=== PATIENT | female | born 1950 | race Caucasian/White ===

== ENCOUNTER 2021-09-01 11:29 | Outpatient (REF) | payer MEDICARE, OTHER, SELFPAY ==
--- NOTE | ~2021-09-01 | XR_ITS ---
EXAMINATION: XR LUMBOSACRAL SPINE WITH OBLIQUES CLINICAL INFORMATION: Lower back pain due to displacement of intervertebral disc COMPARISON: None TECHNIQUE: AP, both oblique, and lateral views of the lumbar spine. Lateral view of the lumbosacral junction. FINDINGS: Mild scoliotic curvature. Osteopenia. There is a compression deformity of the L2 vertebral body with approximately 40% loss of anterior vertebral body height. This may be chronic. Multilevel endplate osteophytes. Disc spaces are maintained. Facet arthropathy throughout. The sacroiliac joints are symmetric. The visualized sacrum is intact. Nonobstructive bowel gas pattern. XR/XR lumbar spine 4V min IMPRESSION: Moderate degenerative changes throughout the lumbar spine. Compression deformity of the L2 vertebral body noted.
== END 2021-09-01 11:30 | disposition home or self-care (01) ==
LOC: HO.XRAY 11:29
PROVIDERS: PCP Internal Medicine; Visit Provider Psychiatry & Neurology Neurology
DX: M51.26 Other intervertebral disc displacement, lumbar region (principal)
CPT/HCPCS: 72110

== ENCOUNTER 2025-06-25 19:54 | Emergency (ER) | payer MEDICARE, OTHER, SELFPAY ==
--- NOTE | 2025-06-25 | ECG_ITS ---
Test Reason : fall Blood Pressure : */* mmHG Vent. Rate : 92 BPM Atrial Rate : 92 BPM P-R Int : 120 ms QRS Dur : 76 ms QT Int : 354 ms P-R-T Axes : 38 1 35 degrees QTcB Int : 437 ms Normal sinus rhythm with sinus arrhythmia Normal ECG No previous ECGs available Referred By: Generic ED Physician Electronically Signed By: COLEMAN PALMER MD
--- NOTE | ~2025-06-25 | CT_ITS ---
CLINICAL HISTORY: fall, face forward, ROMERO CT head without contrast Comparison: None provided. Findings: No intracranial mass, midline shift, hydrocephalus, or acute hemorrhage. There is generalized cerebral and cerebellar volume loss. Minimal mucosal thickening identified within the ethmoid air cells and right maxillary sinus. The bilateral mastoid air cells appear clear. No acute skull fracture. Ubzy-ac-iebneirw left periorbital hematoma. Impression: 1. No acute intracranial abnormality. No acute intracranial hemorrhage. 2. Ptpd-vh-erwvtndo left periorbital hematoma. No acute calvarial fracture. This document has been electronically signed by: Pete Pat MD on 06/25/2025 23:33:09
--- NOTE | ~2025-06-25 | CT_ITS ---
CLINICAL HISTORY: fall, mild posterior neck pain CT cervical spine without contrast Comparison: None provided. Findings: The visualized portions of the bilateral lung apices appear clear. There is minimal grade 1 anterolisthesis of C4 on C5. Moderate to severe degenerative endplate changes are present at the cervical spine, greatest inferiorly. Multilevel bilateral degenerative facet arthropathy present at the cervical spine. Degenerative pannus formation also present at the C1-C2 articulation. No acute fractures or dislocations. No significant degenerative endplate changes at the cervical spine. Impression: 1. No acute fracture or dislocation injury identified at the cervical spine. This document has been electronically signed by: Pete Pat MD on 06/25/2025 23:45:56
--- NOTE | ~2025-06-25 | CT_ITS ---
CLINICAL HISTORY: fell on face from standing CT maxillofacial without contrast Comparison: None provided. Findings: No acute fractures. Temporomandibular joints intact. The bilateral globes appear intact. Nrry-mn-igdembkt left periorbital hematoma. No retrobulbar hematoma. Minimal mucosal thickening present within the ethmoid air cells and right maxillary sinus. The remainder of the paranasal sinuses appear clear. The bilateral mastoid air cells appear clear. There is multifocal dental disease. Impression: 1. No acute fracture or dislocation injury of the facial bones identified. 2. Usmi-xt-nhfmzsex left periorbital hematoma. The bilateral globes appear intact. No retrobulbar edema or hematoma demonstrated. This document has been electronically signed by: Pete Pat MD on 06/25/2025 23:44:29
[2025-06-25 20:02] VITALS: BP 114/72; BP 148/86; PULSE 112; PULSE 95; RESP 17; TEMP 37.6; O2SAT 97; O2SAT 99; BMI 24.9
--- OUTSIDE RECORDS SUMMARY | 2025-06-25 20:18 | XMS_ITS | Patient Health Record ---
Author Organization [facility] Priya downey Billing Info Address [address] [place] [address] Support Name Relationship Address Phone Papa Polancour Emergency Contact [address] [place] [address] Mabel Polanco Guarantor Unknown [phone] Allergies Allergen (clinical drug ingredient) Drug/Non Drug Allergy documented on EMR Reaction Allergy Type Onset Date Status keflex (uncoded) Unknown Allergy Act alexandrea Reason For Referral No Information Medications Medication SIG (Take, Route, Frequency, Duration) Notes Start Date End Date Status Trulicity 0.75 MG/0.5ML as directed Subcutaneous Active Calcium Acetate 667 MG 2 tablets with me als Orally Three times a day for 30 day(s) Active GlipiZIDE 10 MG 1 tablet 30 minutes before breakfast Orally Once a day for 30 day(s) Active Metformin HCl 500 MG 1 tablet with a pedrito l Orally Once a day for 30 day(s) Active Insulin Aspart 100 UNIT/ML as directed Subcutaneous Act alexandrea Sertraline HCl 100 MG 1 tablet Orally On ce a day for 30 day(s) Active Hydrocodone-Acetaminoph en 7.5-325 MG 1 tablet as needed Orally every 4 hrs Not-Taking Social History Tobacco Use: Social History Observation Description Date Details (start date - stop date) Never Smoker NA - NA Tobacco Status: Question Answer Notes Patient is a never smoker Problems Problem Type SNOMED Code ICD Code Onset Dates Problem Status W/U Status Risk Notes Problem 90525353 Other closed intra-articular fracture of distal end of right radius, initial encounter (S52.571A) Active confirmed Problem 77091441 Other closed intra-articular fracture of distal end of right radius with routine healing, subsequent encounter (S52.571D) Active confirmed Problem 411930343 Status post surgery (Z98.890) Active confirmed Plan Of Treatment No Information Insurance Providers Payer Name Payer Address Payer Phone Subscriber Number Group Number Insured Name Patient Relationship to Insured Coverage Start Date Coverage End Date [place] B [id number] [place], [place] [id number] Collin Mabel Self - patient is the insured [facility] PRIOR TO [id number] [address] [place], [place] [id number] Mabel Polanco Self - patient is the insured Medical (General) History Medical History History ICD Code Hypertension DM Osteopenia Peripheral neuropathy Right wrist fracture Surgical History Surgery Date(Month/Year) Bilateral toe surgery ORIF of right distal radius fx with a volar locking plate, Open tenotomy of brachioradalis tendon (Melvina) 12/30/21
--- OUTSIDE RECORDS SUMMARY | 2025-06-25 20:18 | XMS_ITS | Continuity of Care Document ---
Author Organization [facility] [address] [place] [address] Phone [phone] Care Team Providers Care Intelligent Systems Engineer Name Role Phone Lamont Colby M.D. Care Team Information R eceiver [phone] Angel Malcolm MD Care Team Information Receiv er [phone] Dejah Irizarry Care Team Information Rec eiver [phone] Problems Active Problems Provider Date Type 2 diabetes mellitus Quynh Julian M.D. Onset: 07/27/2022 Essential hypertension Alo Jenkins Onset: 07/27/2022 Dyslipidemia Quynh Julian M.D. Ons et: 07/27/2022 Diabetic peripheral neuropathy Quynh ulloa M.D. Onset: 07/27/2022 Closed fracture of right wrist Quynh ulloa M.D. Onset: 07/27/2022 Osteopenia Quynh Julian M.D. Ons et: 07/27/2022 Closed fracture of left wrist Quynh holliday M.D. Onset: 07/27/2022 Closed fracture of right ankle Quynh ulloa M.D. Onset: 07/27/2022 Closed fracture of right shoulder Quynh Simpson M.D. Onset: 07/27/2022 Anxiety state Quynh Julian M.D. Ons et: 07/27/2022 Social History Type Date Description Comments Sex Female Sex Unknown Lives With Spouse Occupation Nurse Work Status Retired ETOH Use Denies alcohol use Tobacco Use Start: Unknown Patient has never smoked Allergies and adverse reactions Active Allergies Criticality Reaction Severity Comments Date Keflex Unable to assess criticality Hives 07/27/2022 Medications Active Medications SIG Qnty Indications Order ing Provider Date Rosuvastatin Oiwfbda2mc Tablets Take 1 tablet daily Lamont Colby M.D. 0 Wybjnmgkx80pe Tablets take 1 tablet ever y morning 90tabs Quynh Julian M.D. 0 Metformin [id number] Tablets take 1 tablet by mouth twice daily 180tabs Quynh Julian M.D. 0 BD Pen Needle/Short/Ultra-Fi ne/31G X 8mm31G X 8 mm Misc 1 pen needle to insulin pen three times a day dx: e11.42 300units E11.42 Quynh Julian M.D. 0 Basaglar Pyjpkkz269Lnmy/ML Solution Pen-Inject inject 10 units subcutaneously daily dx: e11.42 15ml E11.42 Quynh Julian M.D. 0 Sertraline IMZ13cl Tablets Take 1 tablet daily Lamont Colby M.D. 0 Losartan Rzwvlezzh50ao Tablets Take 1 tablet daily Lamont Bueno M.D. 0 Multivitamin Womens 50+ AdvancedTablets 1 by mouth every day Jordan Julian M.D. 0 Calcium 600 + [id number] Tablets 1 by mouth every day Quynh Julian M.D. 0 Preservision Areds 2Areds 2 Capsules 1 by mouth once a day Quynh Julian M.D. 0 Vitamin B-350498cii Tablets Sub 1 qd Quynh Julian M.D. 0 Fgfgao637un Capsules 1 by mouth every da y as needed Unknown 0 Trazodone XAC22ny Tablets take 1/2 tablet by mouth daily at bedtime as needed Unknown 0 Vital Signs Date Vital Result Comment 01/29/2025 3:46pm BP Systolic 110 mmHg BP Diastolic 68 mmHg Heart Rate 73 /min Height 63 inches 5'3 Weight 123.12 lb BMI (Body Mass Index) 21.8 kg/m2 Results Test Acquired Date Facility Test Result H/L Range Note Glucose Fingerstick 01/29/2025 Inhouse Glucose Fingerstick 100 Hemoglobin A1c 01/29/2025 Inhouse Hemoglobin A1c 9.9% Comp. Metabolic Panel (14) 09/27/2024 [facility] Glucose 135 mg/dL High 70-99 BUN 9 mg/dL 8-27 Creatinine 0.53 mg/dL Low 0.57-1.0 0 eGFR 97 mL/min/1. 73 >59 BUN/Creatinine Ratio 17 12-28 Sodium 141 mmol/L 134-144 Potassium 4.3 mmol/L 3.5-5.2 Chloride 104 mmol/L 96-106 Carbon Dioxide, Total 20 mmol/L 20-29 Calcium 9.9 mg/dL 8.7-10.3 Protein, Total 6.1 g/dL 6.0-8.5 Albumin 4.2 g/dL 3.8-4.8 Globulin, Total 1.9 g/dL 1.5-4.5 Bilirubin, Total 0.3 mg/dL 0.0-1 .2 Alkaline Phosphatase 62 IU/L 44-121 Ast (Sgot) 19 IU/L 0-40 Alt (SGPT) 16 IU/L 0-32 Lipid Panel 09/27/2024 [facility] Cholesterol, Total 120 mg/dL 100-199 Triglycerides 83 mg/dL 0-149 HDL Cholesterol 56 mg/dL >39 VLDL Cholestero l Placido 16 mg/dL 5-40 LDL Chol Calc (Nih) 48 mg/dL 0-99 LDL Calc Comment: TNP Glucose Fingerstick 09/27/2024 Inhouse Glucose Fingerstick 156 Hemoglobin A1c 09/27/2024 Inhouse Hemoglobin A1c 8.1% Albumin/Creatinin e Ratio, Random Urine 05/23/2024 [facility] Creatinine, Urine 106.0 mg/dL Not Estab. 1, 2 Albumin, Urine 102.6 ug/mL Not Estab. 3 Alb/Creat Ratio 97 mg/gcreat High 0-29 4 Glucose Fingerstick 05/23/2024 Inhouse Glucose Fingerstick 213 Hemoglobin A1c 05/23/2024 Inhouse Hemoglobin A1c 8.2% Glucose Fingerstick 01/12/2024 Inhouse Glucose Fingerstick 105 Hemoglobin A1c 01/12/2024 Inhouse Hemoglobin A1c 8.3% Comprehensive Metabolic Panl 01/12/2024 [facility] Glucose 84 mg/dL (70-99) BUN 10 mg/dL (8-23) Creatinine 0.5 mg/dL (0.5-1.0 ) Sodium 144 mmol/L (133-145 ) Potassium 4.4 mmol/L (3.6-5.2 ) Chloride 102 mmol/L (98-107) Bicarbonate 29 mmol/L (22-29) Anion Gap 13 (4-17) Albumin 4.3 GM/DL (3.4-4.8 ) Calcium 10.6 mg/dL High (8.6-10. 5) Bilirubin,Total 0.4 mg/dL (0-1.2 ) Total Protein 6.4 GM/DL (6.2-8.2 ) Ag Ratio 2.0 Ast 16 U/L (0-32) Alk Phos 77 U/L (35-104) Alt 14 U/L (0-33) Estimated GFR Creatinine 99 ML/MIN/1. 73M2 5 Glucose Fingerstick 06/04/2023 Inhouse Glucose Fingerstick 196 Glucose Fingerstick 07/27/2022 Inhouse Glucose Fingerstick 99 Hemoglobin A1c 07/27/2022 Inhouse Hemoglobin A1c 7.0% 1 SRC: URINE 2 Source of Specimen: URINE 3 Source of Specimen: URINE 4 Source of Specimen: URINE Normal: 0 - 29 Moderately increased: 30 - 300 Severely increased: >300 5 Creatinine based est imated glomerular filtration (eGFR) in adults is calculated using the [employer] recommended 2020 CKD-EPI equation. Estimates GFR from serum creatinine, age and sex. Procedures Date Code Description Status 01/12/2024 52654 Collection Of Venous Blood B y Venipuncture Completed Medical Devices Description No Information Available Encounters Type Date Location Provider Dx Diagnosis Office Visit 01/29/2025 3:15p Main Office Quynh Julian M.D. E11.42 Type 2 diabetes mellitus with diabetic polyneuropathy I10 Essential (primary) hypertension E78.00 Pure hypercholestero lemia, unspecified E11.65 Type 2 diabetes andria itus with hyperglycemia F03.90 Unsp dementia, unsp severity, without beh/psych/mood/anx Z79.4 halfway (current) use of insulin Assessments Date Code Description Provider 01/29/2025 E11.42 Type 2 diabetes mellitus with diabetic polyneuropathy Quynh Julian M.D. 01/29/2025 I10 Essential (primary) hyperten gabriela Quynh Julian M.D. 01/29/2025 E78.00 Pure hypercholesterolemia, u nspecified Quynh Julian M.D. 01/29/2025 E11.65 Type 2 diabetes mellitus with hyperglycemia Quynh Julian M.D. 01/29/2025 F03.90 Unspecified james ntia, unspecified severity, without behavioral disturbance, psychotic disturbance, mood disturbance, and anxiety Quynh Julian M.D. 01/29/2025 Z79.4 terminal gauger (current) use of i nsulin Quynh Julian M.D. Plan of Treatment Future Appointment(s):* 09/28/2025 2:15 pm - Quynh Julian M.D. at Main Office 07/27/2022 - Quynh Julian M.D.* E11.42 Type 2 diabetes mellitus with diabetic polyneuropathy * I10 Essential (primary) hypertension * E78.00 Pure hypercholesterolemia, unspecified * F41.9 Anxiety disorder, unspecified Functional Status Description No Information Available Mental Status Description No Information Available Referrals Description No Information Available
--- OUTSIDE RECORDS SUMMARY | 2025-06-25 20:18 | XMS_ITS | Clinical Summary ---
Author Organization [facility] it[facility] Address [address] [place] [address] Care Team Providers Care Sales Promotion Director Name Role Phone Angel Malcolm MD Primary Care Provider Allergies Active Allergy Reactions Criticality Noted Date Comments Cephalexin Rash 02/18/2023 Medications calcium carbonate (CALCIUM 600 ORAL) Take by mouth daily. Active ibuprofen (ADVIL,MOTRIN) 600 mg tablet Take 1 Tablet by mouth every 6 hours as needed for Pain. 08/30/2023 Active multivitamin (MULTIPLE VITAMINS ORAL) Take 1 Tablet by mouth daily. Active vit C/E/Zn/coppr/coby tein/zeaxan (PRESERVISION AREDS-2 ORAL) Take by mouth. Active amitriptyline (ELAVIL) 25 mg tablet Take 1 Tablet by mouth at bedtime. 06/02/2023 Active aspirin 81 mg EC tablet Take 1 tablet (81 mg total) by mouth 1 (one) time each day. 02/18/2023 Active docusate sodium (COLACE) 100 mg capsule Take 1 capsule (100 mg total) by mouth 2 (two) times a day. 08/18/2023 Active dulaglutide (Trulicity) 0.75 mg/0.5 mL pen injector injection Inject into the skin once a week. Active gabapentin (NEURONTIN) 100 mg capsule 1 cap in AM and 2 cap at night 08/17/2023 Active glyBURIDE (DIABETA) 5 mg tablet Take 1 Tablet by mouth daily (with breakfast). Active insulin glargine (LANTUS SoloStar) 100 unit/mL (3 mL) injection pen Inject 15 Units into the skin at bedtime. 05/27/2023 Active losartan (COZAAR) 25 mg tablet Take 1 tablet (25 mg total) by mouth 1 (one) time each day. 02/18/2023 Active metFORMIN (GLUCOPHAGE) 1,000 mg tablet Take 1 Tablet by mouth 2 times daily (with meals). Active rosuvastatin (CRESTOR) 10 mg tablet Take 1 tablet (10 mg total) by mouth 1 (one) time each day. 02/18/2023 Active sertraline (ZOLOFT) 50 mg tablet Take 1 tablet (50 mg total) by mouth 1 (one) time each day. Active Active Problems Problem Noted Date Diagnosed Date Ataxia 02/18/2023 Insomnia 02/18/2023 Mixed hyperlipidemia 02/18/2023 Osteopenia 02/18/2023 Primary hypertension 02/18/2023 Immunizations Name Administration Dates Next Due Influenza Quadravalent, MDCK , 0.5ml, preservative free (Flucelvax) 6mo and older 09/02/2023 Surgical History Surgery Date Site/Laterality Comments WRIST SURGERY PROCEDURE: HISTORICAL WRIST SURGERY Medical History Medical History Date Comments DM (diabetes mellitus) ([facility] V24, [facility] [place] V28) DX:DM (diabetes mellitus) ([facility]) Essential (primary) hypertension DX:Essential (primary) hypertension Mixed hyperlipidemia DX:Mixed hy perlipidemia Peripheral neuropathy DX:Periphe ral neuropathy Insomnia DX:Insomnia Ataxia DX:Ataxia Family History Medical History Relation Name Comments Diabetes Mother Coronary artery disease Neg Hx Other cancer Neg Hx Relation Name Status Comments Mother Social History Tobacco Use Types Packs/Day Years Used Date Smoking Tobacco: Never Smokeless Tobacco: Never Alcohol Use Standard Drinks/Week Comments Never 0 (1 standard drink = 0.6 oz pur e alcohol) Comments Unknown Sex and Gender Information Value Date Recorded Sex Assigned at Not on file Legal Sex Female 3:26 PM EST Gender Identity Not on file Sexual Orientation Not on file Obstetrics History Last Filed Vital Signs Vital Sign Reading Time Taken Comments Blood Pressure 112/68 10/14/2023 9:11 AM EST Pulse 84 10/14/2023 9:11 AM EST Temperature - - Respiratory Rate - - Oxygen Saturation - - Inhaled Oxygen Concentration - - Weight 70.3 kg (155 lb) 10/14/2023 9:11 AM EST Height 162.6 cm (5' 4 ) 10/06/2023 10:05 AM EST Body Mass Index 26.61 10/06/2023 10:05 AM EST Plan of Treatment Health Maintenance Due Date Last Done Comments Breast Cancer Screening 1950 Diabetes: Annual Retina Eye Exam 1960 DTaP,Tdap,and Td Vaccines (1 - Tdap) 1969 Pneumococcal Vaccine: 50+ Years (1 of 1 - PCV) 2000 Zoster Vaccines (1 of 2) 2000 RSV Immunization Adult Patients (1 - Risk 60-74 years 1-dose series) 2010 Colorectal Cancer Screening: Colonoscopy 10/07/2022 Falls Risk Assessment 10/07/2022 Hepatitis C Screening 10/07/2022 Osteoporosis Screening (Bone Density Screening) 10/07/2022 Social Influencers of Health Screening 10/07/2022 COVID-19 Vaccine ( - season) 2024 Diabetes: Annual GFR (Glomerular Filtration Rate) 08/25/2024 08/25/2023 Hypertension/CHF/CAD Annual BMP Blood Test 08/25/2024 08/25/2023 Depression Screening 11/08/2024 Diabetes: Annual Urine Albumin-Creatinine Ratio (uACR) 03/23/2025 08/25/2023 Diabetes: Blood Sugar Control Test (HGBA1C) 03/23/2025 08/25/2023 Influenza Vaccine (#1) 2025 , 09/06/2022, 08/28/2021, Additional history exists Diabetes: Annual Foot Exam 09/04/2025 09/04/2024 Cholesterol Screening (Lipid Panel) 08/25/2028 08/25/2023 HIB Vaccines Aged Out No longer eligi ble based on patient's age to complete this topic HPV Vaccines Aged Out No longer eligi ble based on patient's age to complete this topic Hepatitis A Vaccines Aged Out No long er eligible based on patient's age to complete this topic Hepatitis B Vaccines Aged Out No long er eligible based on patient's age to complete this topic IPV Vaccines Aged Out No longer eligi ble based on patient's age to complete this topic MMR Vaccines Aged Out No longer eligi ble based on patient's age to complete this topic Meningococcal ACWY Vaccine Aged Out N o longer eligible based on patient's age to complete this topic Meningococcal B Vaccine Aged Out No l onger eligible based on patient's age to complete this topic RSV Immunization Patients Under 20 months Aged Out No longer eligible based on patient's age to complete this topic Varicella Vaccines Aged Out No longer eligible based on patient's age to complete this topic Procedures Procedure Name Priority Date/Time Associated Diagnosis Comments DIABETES FOOT EXAM Routine 09/04/2024 URINE ALBUMIN CREATININE RATIO Routine 08/25/2023 ANNUAL BMP BLOOD TEST Routine 08/25/2023 HEMOGLOBIN A1C Routine 08/25/2023 LIPID PANEL Routine 08/25/2023 from Last 3 Months or Most Recently Relevant to Health Maintenance Results * Diabetes Foot Exam (09/04/2024) Pathologist [facility] Diabetes: Annual Foot Exam abstracted Result [facility] Provider HEALTH MAINTENANCE Final Result * Urine Albumin Creatinine Ratio (08/25/2023) [facility] Urine Albumin Creatinine Ratio abstracted Result [facility] Provider HEALTH MAINTENANCE Final Result * Annual BMP Blood Test (08/25/2023) [facility] Annual BMP Blood Test abstracted Result [facility] Provider HEALTH MAINTENANCE Final Result * (ABNORMAL) Hemoglobin A1c (08/25/2023) [facility] Hemoglobin A1C 7.9(A) <=6.5 % Blood Venous blood specimen / Unknown Result [facility] Provider LAB BLOOD ORDERABLES Rocio l Result * Lipid panel (08/25/2023) LDL/HDL Ratio 3 0 - 4 Triglycerides 116 0 - 150 mg/dL Cholesterol 156 0 - 200 mg/dL HDL 60 >=40 mg/dL LDL Cholesterol 73 0 - 100 mg/dL Blood Venous blood specimen / Unknown us Historical Provider LAB BLOOD ORDERABLES Rocio l Result from Last 3 Months or Most Recently Relevant to Health Maintenance Care Teams Sales Promotion Director Relationship Specialty Start Date End Date Angel Malcolm MD [address] [place] [id number] PCP - General 10/22/22
[2025-06-25 21:15] LABS: MANUAL DIFF FLAG NO
[2025-06-25 21:20] LABS: Hematocrit 37.0 % (37.0-47.0); Hemoglobin 12.6 g/dl (12.0-16.0); Imm Gran Abs Auto 0.05 X10*3/uL (0.00-0.03); Imm Gran Pct Auto 0.5 % (0.0-0.4); Lymphocytes Absolute Auto 0.6 X10*3/uL (1.2-4.9); Mean Corpuscular HGB Conc 34.1 g/dl (31.0-35.0); Mean Corpuscular Hemoglobin 30.7 pg (27.0-33.0); Mean Corpuscular Volume 90.2 fL (80.0-98.0); NRBC Abs Auto 0.000 X10*3/uL (0.0-0.012); NRBC Pct Auto 0.0 /100WBC (0.0-0.2); Platelet Count 242 X10*3/uL (160-400); Red Blood Count 4.10 X10*6/uL (4.20-5.50); White Blood Count 9.2 X10*3/uL (4.8-10.8)
[2025-06-25 21:31] LABS: Anion Gap 15 (12-20); Blood Urea Nitrogen 13 mg/dL (9-16); Calcium 9.0 mg/dL (8.4-10.2); Carbon Dioxide 25 mmol/L (22-29); Chloride 100 mmol/L (96-108); Creatinine Clr Calc Pharmacy 73.1; Estimated Glomerular Filt Rate > 60; Potassium 4.2 mmol/L (3.3-5.1); Sodium 136 mmol/L (135-145)
--- NOTE | 2025-06-25 22:03 | ED_ITS ---
HPI - Fall General Chief Complaint: Fall Stated Complaint: FALL, EYEBROW LAC Time Seen by Provider: 06/25/25 20:57 Source: patient, family and EMS Mode of arrival: EMS Limitations: other (Dementia) History of Present Illness ED Provider: Dr. Shaina Sun HPI Narrative: Patient comes to the emergency room via ambulance. Today, patient had a fall and is complaining of a laceration to the left side of the eyebrow. According to the family, patient lives with her who is otherwise healthy. However today he has COVID and is not here. The family reports that the patient has been falling almost every day for about a month, has sustained well over 20 falls in 1 month. Patient has a share of dementia and is a poor historian. Patient is known to the family to lie about her pain level. Patient will state that she has no pain even though she does Related Data Home Medications ?Medication ?Instructions ?Recorded ?Confirmed aspirin 81 mg tablet 81 mg PO DAILY 06/26/2506/08 glipizide 10 mg tablet 10 mg PO DAILY 06/26/2506/08 insulin glargine 100 unit/mL (3 10 unit subcut DAILY 0 06/26/25 06/26/25 mL) subcutaneous pen (Basaglar KwikPen U-100 Insulin) losartan 25 mg tablet 25 mg PO DAILY 06/26/2506/08 metformin 1,000 mg tablet 1,000 mg PO BID 06/26/25 rosuvastatin 10 mg tablet 10 mg PO DAILY 06/26/2506/08 sertraline 50 mg tablet 50 mg PO DAILY 06/26/2506/08 trazodone 50 mg tablet 50 mg PO BEDTIME 06/26/25 Allergies Allergy/AdvReac Type Severity Reaction Status Date / Time cephalexin (From Keflex) Allergy Unknown Unknown Verified 06/28/25 10:05 Review of Systems 2 Review of Systems: Yes Other (Patient denies any symptoms, however, patient has history of dementia, poor) [facility] Past Medical History Medical History (Updated 07/01/25 @ 00:02 by Background Dakeri) Dementia Social History Social History Advance Directives Date on File: 06/26/25 Physical Exam 2 Exam: Exam: Appearance: Alert. Oriented X3. No acute distress. Eyes: Pupils equal, round and reactive to light. ENT: Pharynx normal. Neck: Normal inspection. Neck supple. No lymph nodes noted. No crepitus CVS: Normal heart rate and rhythm. Pulses normal. Normal S1 and S2 Respiratory: No respiratory distress. Breath sounds normal. No Wheezing. No rales Abdomen: Soft and nontender. No rigidity. No distention. Skin: Skin warm and dry. Normal skin color. Normal skin turgor. Multiple contusions in old upper and lower extremities from multiple falls, there is a 2 cm laceration on the lateral aspect of the left eyebrow Extremities: No lower extremity edema. No Lacerations. No Rash Neuro: Oriented X 3. No motor deficit. No sensory deficit. Moving all extremities. No slurred speech. CN 2 through 12 grossly intact Psych: calm, cooperative, normal affect Vital Signs: Vital Signs: Last Vital Signs Temp 98.2 F 07/01/25 11:26 Pulse 91 07/01/25 11:26 Resp 18 07/01/25 11:26 BP 110/67 07/01/25 11:26 Pulse Ox 96 07/01/25 11:26 O2 Del Method Room Air 07/01/25 11:26 BMI result Body Mass Index 24.9 Course Course Course Narrative: Patient denies any pain, patient's vitals stable. All of patient's labs pending CT scan pending Patient will need stitches Reevaluation(s) Reevaluation #1: Time: 12:00PM Date: 06/26/25 Provider: CASSIUS Dowling Patient in physician observation for case management needs. No acute events reported overnight.? No current issues or complaints. VS stable. Patient is pending placement at facility/pending PT/CM eval. Will continue to monitor. Time: 17:43 Date: 06/26/25 Provider: CASSIUS Dowling Patient in physician observation for case management needs. Family at bedside, concerned about her lethargy. They state that she is starting to slowly wake up. I explained to family that she did receive a lot of medications that can make her very drowsy which is likely the cause of her current symptoms right now. Patient is arousable to verbal stimulation. She is moving all extremities. Patient appears to be very dry, given this, will medicate with 1 L of IV fluids. Will remove IV after receiving IV fluids to prevent from injury if she gets agitated tonight. Reevaluation #2: Patient is becoming agitated, trying to dislodge her pure wick catheter, she was medicated yesterday with both olanzapine and Ativan, we will attempt to give 2 mg of oral Ativan which is what she had yesterday. Time: 00:24 Reevaluation #3: speaking with Alysha Mitchell NP, she is here on behalf of the psychiatry service....... She is making modifications to the patient's medications in regard to her agitation and sleep disturbance. The patient's med rec has been signed today, I have also added POCs, she is diabetic....... At the time of discharge, the psychiatry service will assess the patient again and modify her medications, so that the medications for sleep and agitation are scheduled versus p.r.n.. Time: 21:11 Additional Reevaluation(s): 06/28/2025 Physician observation: Patient is not in in any distress. Negative for any overnight events. Patient is comfortable in bed. Waiting for facility placement. Patient at [facility]. 1046 pm patient remains in physician labs, her blood sugars have been poorly controlled, she ranges from 230-330. She does have COVID, this is the likely reason why. Her med rec was signed yesterday, she has been getting her anti glycemic agents. To err on the side of caution we will repeat a BNP to make sure she is not developing acidosis. Time: 10:19 Date: 06/29/25 Provider: Yolanda Oreilly PA-C Patient in physician observation for case management needs. No acute events reported overnight.? No current issues or complaints. VS stable. Patient is pending placement at facility with [facility] for [facility], she is able to make her needs known. Fluctuating dementia but is orientated to her self which is baseline. Geriatric psycho consult pending for medication. Will continue to monitor. McNabbPhysician observation continued. Uneventful night. Vital signs stable. No complaints from nursing overnight. Med reconciliation reviewed and done. Pending disposition. Will continue to monitor. 722 pm a code status was not yet established for the patient, I just got off the phone with the patient's daughter, Rosie Harpreet, she is to be a full code until the family can have discussion about modifying her code status. 0846 at this time, observation ended. Patient will be [facility]. Patient agreeable to this plan. Medications Administered Discontinued Medications Generic Name Dose Route Start Last Admin Trade Name Freq PRN Reason Stop Dose Admin Acetaminophen 650 mg 06/27/25 20:59 06/29/25 20:15 Acetaminophen 325 Mg Tablet PO 650 mg Q6H PRN Administration Pain/fever Aspirin 81 mg 06/28/25 09:00 07/01/25 09:52 Aspirin 81 Mg Tab.Chew PO 81 mg DAILY DELMY Administration Atorvastatin Calcium 40 mg 06/28/25 09:00 07/01/25 09:52 Atorvastatin Calcium 40 Mg Tablet PO 40 mg DAILY DELMY Administration Diphenhydramine HCl 50 mg 06/26/25 01:19 06/26/25 01:32 Diphenhydramine Hcl 25 Mg Capsule PO 06/26/25 01:20 50 mg ONCE ONE Administration Glipizide 10 mg 06/28/25 09:00 07/01/25 09:52 Glipizide 10 Mg Tablet PO 10 mg DAILY DELMY Administration Sodium Chloride 1,000 mls @ 999 mls/hr 06/26/25 17:45 06/26/25 22:27 Ns IV 06/26/25 18:45 Infused .Q1H1M ONE Infusion Insulin Glargine 10 unit 06/28/25 09:00 07/01/25 09:52 Insulin Glargine,Hum.Rec.Anlog 100 Unit/Ml 10 Ml Vial SUBCUT 10 unit DAILY DELMY Administration Lidocaine HCl 10 ml 06/25/25 21:56 06/25/25 22:10 Lidocaine Hcl 1 % 20 Ml Vial INFILTRATI 06/25/25 21:57 10 ml ONCE ONE Administration Lorazepam 2 mg 06/25/25 23:26 06/25/25 23:39 Lorazepam 1 Mg Tablet PO 06/25/25 23:27 2 mg ONCE ONE Administration Lorazepam 2 mg 06/26/25 01:19 06/26/25 01:32 Lorazepam 1 Mg Tablet PO 06/26/25 01:20 2 mg ONCE ONE Administration Lorazepam 2 mg 06/27/25 00:24 06/27/25 00:28 Lorazepam 1 Mg Tablet PO 08/20/25 00:25 2 mg ONCE ONE Administration Lorazepam 0.5 mg 06/27/25 20:57 06/28/25 20:50 Lorazepam 0.5 Mg Tablet PO 0.5 mg Q6H PRN Administration severe anxiety Losartan Potassium 25 mg 06/28/25 09:00 07/01/25 09:52 Losartan Potassium 25 Mg Tablet PO 25 mg DAILY DELMY Administration Protocol Melatonin 6 mg 06/27/25 21:00 06/30/25 19:29 Melatonin 3 Mg Tablet PO Not Given BEDTIME DELMY Metformin HCl 1,000 mg 06/27/25 21:15 07/01/25 09:52 Metformin Hcl 1,000 Mg Tablet PO 1,000 mg BID DELMY Administration Olanzapine 10 mg 06/25/25 23:26 06/25/25 23:39 Olanzapine 10 Mg Tablet PO 06/25/25 23:27 10 mg ONCE ONE Administration Olanzapine 10 mg 06/26/25 01:19 06/26/25 01:32 Olanzapine 10 Mg Tablet PO 06/26/25 01:20 10 mg ONCE ONE Administration Olanzapine 2.5 mg 06/27/25 21:00 07/01/25 09:51 Olanzapine 2.5 Mg Tablet PO 2.5 mg BID DELMY Administration Olanzapine 5 mg 06/27/25 20:57 06/28/25 22:34 Olanzapine 5 Mg Tablet PO 5 mg BID PRN Administration agitation Sertraline HCl 50 mg 06/28/25 09:00 07/01/25 09:51 Sertraline Hcl 50 Mg Tablet PO 50 mg DAILY DELMY Administration Trazodone HCl 50 mg 06/27/25 20:57 06/28/25 22:34 Trazodone Hcl 50 Mg Tablet PO 50 mg BEDTIME PRN Administration Insomnia Trazodone HCl 50 mg 06/27/25 21:15 06/30/25 19:29 Trazodone Hcl 50 Mg Tablet PO 50 mg BEDTIME DELMY Administration Procedures Laceration Laceration 1: Site: face Size (cm): 2 Description: linear Depth: simple, single layer Local Anesthetic: lidocaine 1% Amount of anesthesia used (mL): 5 Pre-repair: wound explored Skin layer closed with: nylon Size (cm): 5-0 Number of sutures: 4 Technique: simple, interrupted Medical Decision Making Medical Decision Making MDM Narrative: My interpretation of labs: No significant abnormality in patient's hematology chemistry, urinalysis negative for UTI Head CT, face CT, cervical spine CT did not show any acute abnormality. Patient's laceration needed four stitches As mentioned above, patient has had over 20 falls per family in a month. No obvious medical reason. PT case management consult pending. Family Agrees with plan. Earlier today, patient was given p.o. Zyprexa, patient is still very agitated. Now given Benadryl p.o., an extra dose of olanzapine 10 mg and 2 mg of Ativan Also, patient tested positive for COVID. Patient is otherwise asymptomatic, no chest pain or shortness of breath. Patient's weakness started 1 month before she contracted COVID. The reason we tested the patient for COVID is because her has COVID at home right now. Physician observation started at 23:00 Differential Diagnosis Differential Diagnoses: The differential diagnosis associated with the presentation includes (Deconditioning, UTI, brain mass, dementia) Admission/Observation Consideration of admission/observation: Escalation of care including admission/observation considered (Patient will likely need physical therapy/case management and possibly placement.) Lab Data MDM Lab Attestation statement: I reviewed the patient's lab results. 06/25/25 21:09 06/29/25 14:16 Labs: Lab Results 06/25/25 06/25/25 06/25/25 Range/Units 21:09 22:12 22:23 WBC 9.2 (4.8-10.8) X10*3/uL RBC 4.10 L (4.20-5.50) X10*6/uL Hgb 12.6 (12.0-16.0) g/dl Hct 37.0 (37.0-47.0) % MCV 90.2 (80.0-98.0) fL MCH 30.7 (27.0-33.0) pg MCHC 34.1 (31.0-35.0) g/dl RDW 13.3 (11.0-16.0) % Plt Count 242 (160-400) X10*3/uL MPV 9.5 (9.4-12.3) fL Immature Gran % (Auto) 0.5 H (0.0-0.4) % Neut % (Auto) 83.4 H (45-73) % Lymph % (Auto) 6.8 L (20-40) % [place] % (Auto) 8.1 (2-11) % Eos % (Auto) 0.7 (0-4) % Baso % (Auto) 0.5 (0-2) % Lymph # (Auto) 0.6 L (1.2-4.9) X10*3/uL [place] # (Auto) 0.8 (0.1-1.2) X10*3/uL Eos # (Auto) 0.1 (0.0-0.4) X10*3/uL Baso # (Auto) 0.1 (0.0-0.2) X10*3/uL Abs Immat Gran (auto) 0.05 H (0.00-0.03) X10*3/uL Absolute Neuts (auto) 7.7 (2.0-8.3) x10*3/uL Absolute Nucleated RBC 0.000 (0.0-0.012) X10*3/uL Nucleated RBC % (auto) 0.0 (0.0-0.2) /100WBC Sodium 136 (135-145) mmol/L Potassium 4.2 (3.3-5.1) mmol/L Chloride 100 (96-108) mmol/L Carbon Dioxide 25 (22-29) mmol/L Anion Gap 15 (12-20) BUN 13 (9-16) mg/dL Creatinine 0.63 (0.5-1.4) mg/dL Estim Creat Clear Calc 73.1 Estimated GFR > 60 POC Glucose (60-115) mg/dL Random Glucose 223 H (60-115) mg/dL Calcium 9.0 (8.4-10.2) mg/dL Urine Color Yellow Urine Appearance Clear Urine pH 6.5 (5.0-9.0) Ur Specific [place] 1.020 (1.005-1.025) Urine Protein Trace (Neg-Trace) mg/dL Urine Glucose (UA) >=1000 H (Negative) mg/dL Urine Ketones 15 (Negative) mg/dL Urine Blood Negative (Negative) Urine Nitrite Negative (Negative) Ur Leukocyte Esterase Negative (Negative) Urine RBC 0-2 (0-2) /HPF Urine WBC 0-5 (0-5) /HPF Ur Squamous Epith Cells 0-2 (0-2) /HPF Urine Bacteria None Seen (None Seen) Hyaline Casts 0-2 (0-2) /LPF COVID-19 (LAUREN) Positive A (Negative) COVID-19 Clin Com See Note 06/26/25 06/27/25 06/28/25 Range/Units 16:23 21:24 07:33 WBC (4.8-10.8) X10*3/uL RBC (4.20-5.50) X10*6/uL Hgb (12.0-16.0) g/dl Hct (37.0-47.0) % MCV (80.0-98.0) fL MCH (27.0-33.0) pg MCHC (31.0-35.0) g/dl RDW (11.0-16.0) % Plt Count (160-400) X10*3/uL MPV (9.4-12.3) fL Immature Gran % (Auto) (0.0-0.4) % Neut % (Auto) (45-73) % Lymph % (Auto) (20-40) % [place] % (Auto) (2-11) % Eos % (Auto) (0-4) % Baso % (Auto) (0-2) % Lymph # (Auto) (1.2-4.9) X10*3/uL [place] # (Auto) (0.1-1.2) X10*3/uL Eos # (Auto) (0.0-0.4) X10*3/uL Baso # (Auto) (0.0-0.2) X10*3/uL Abs Immat Gran (auto) (0.00-0.03) X10*3/uL Absolute Neuts (auto) (2.0-8.3) x10*3/uL Absolute Nucleated RBC (0.0-0.012) X10*3/uL Nucleated RBC % (auto) (0.0-0.2) /100WBC Sodium (135-145) mmol/L Potassium (3.3-5.1) mmol/L Chloride (96-108) mmol/L Carbon Dioxide (22-29) mmol/L Anion Gap (12-20) BUN (9-16) mg/dL Creatinine (0.5-1.4) mg/dL Estim Creat Clear Calc Estimated GFR POC Glucose 195 H 354 H* 283 H (60-115) mg/dL Random Glucose (60-115) mg/dL Calcium (8.4-10.2) mg/dL Urine Color Urine Appearance Urine pH (5.0-9.0) Ur Specific [place] (1.005-1.025) Urine Protein (Neg-Trace) mg/dL Urine Glucose (UA) (Negative) mg/dL Urine Ketones (Negative) mg/dL Urine Blood (Negative) Urine Nitrite (Negative) Ur Leukocyte Esterase (Negative) Urine RBC (0-2) /HPF Urine WBC (0-5) /HPF Ur Squamous Epith Cells (0-2) /HPF Urine Bacteria (None Seen) Hyaline Casts (0-2) /LPF COVID-19 (LAUREN) (Negative) COVID-19 Clin Com 06/28/25 06/28/25 06/28/25 Range/Units 12:02 16:16 21:15 WBC (4.8-10.8) X10*3/uL RBC (4.20-5.50) X10*6/uL Hgb (12.0-16.0) g/dl Hct (37.0-47.0) % MCV (80.0-98.0) fL MCH (27.0-33.0) pg MCHC (31.0-35.0) g/dl RDW (11.0-16.0) % Plt Count (160-400) X10*3/uL MPV (9.4-12.3) fL Immature Gran % (Auto) (0.0-0.4) % Neut % (Auto) (45-73) % Lymph % (Auto) (20-40) % [place] % (Auto) (2-11) % Eos % (Auto) (0-4) % Baso % (Auto) (0-2) % Lymph # (Auto) (1.2-4.9) X10*3/uL [place] # (Auto) (0.1-1.2) X10*3/uL Eos # (Auto) (0.0-0.4) X10*3/uL Baso # (Auto) (0.0-0.2) X10*3/uL Abs Immat Gran (auto) (0.00-0.03) X10*3/uL Absolute Neuts (auto) (2.0-8.3) x10*3/uL Absolute Nucleated RBC (0.0-0.012) X10*3/uL Nucleated RBC % (auto) (0.0-0.2) /100WBC Sodium (135-145) mmol/L Potassium (3.3-5.1) mmol/L Chloride (96-108) mmol/L Carbon Dioxide (22-29) mmol/L Anion Gap (12-20) BUN (9-16) mg/dL Creatinine (0.5-1.4) mg/dL Estim Creat Clear Calc Estimated GFR POC Glucose 334 H 353 H* 383 H* (60-115) mg/dL Random Glucose (60-115) mg/dL Calcium (8.4-10.2) mg/dL Urine Color Urine Appearance Urine pH (5.0-9.0) Ur Specific [place] (1.005-1.025) Urine Protein (Neg-Trace) mg/dL Urine Glucose (UA) (Negative) mg/dL Urine Ketones (Negative) mg/dL Urine Blood (Negative) Urine Nitrite (Negative) Ur Leukocyte Esterase (Negative) Urine RBC (0-2) /HPF Urine WBC (0-5) /HPF Ur Squamous Epith Cells (0-2) /HPF Urine Bacteria (None Seen) Hyaline Casts (0-2) /LPF COVID-19 (LAUREN) (Negative) COVID-19 Clin Com 06/28/25 06/29/25 06/29/25 Range/Units 23:16 07:23 14:16 WBC (4.8-10.8) X10*3/uL RBC (4.20-5.50) X10*6/uL Hgb (12.0-16.0) g/dl Hct (37.0-47.0) % MCV (80.0-98.0) fL MCH (27.0-33.0) pg MCHC (31.0-35.0) g/dl RDW (11.0-16.0) % Plt Count (160-400) X10*3/uL MPV (9.4-12.3) fL Immature Gran % (Auto) (0.0-0.4) % Neut % (Auto) (45-73) % Lymph % (Auto) (20-40) % [place] % (Auto) (2-11) % Eos % (Auto) (0-4) % Baso % (Auto) (0-2) % Lymph # (Auto) (1.2-4.9) X10*3/uL [place] # (Auto) (0.1-1.2) X10*3/uL Eos # (Auto) (0.0-0.4) X10*3/uL Baso # (Auto) (0.0-0.2) X10*3/uL Abs Immat Gran (auto) (0.00-0.03) X10*3/uL Absolute Neuts (auto) (2.0-8.3) x10*3/uL Absolute Nucleated RBC (0.0-0.012) X10*3/uL Nucleated RBC % (auto) (0.0-0.2) /100WBC Sodium 136 (135-145) mmol/L Potassium 4.0 (3.3-5.1) mmol/L Chloride 102 (96-108) mmol/L Carbon Dioxide 24 (22-29) mmol/L Anion Gap 14 (12-20) BUN 16 (9-16) mg/dL Creatinine 0.56 0.64 (0.5-1.4) mg/dL Estim Creat Clear Calc 82.2 71.9 Estimated GFR > 60 > 60 POC Glucose 247 H (60-115) mg/dL Random Glucose 348 H (60-115) mg/dL Calcium 8.7 (8.4-10.2) mg/dL Urine Color Urine Appearance Urine pH (5.0-9.0) Ur Specific [place] (1.005-1.025) Urine Protein (Neg-Trace) mg/dL Urine Glucose (UA) (Negative) mg/dL Urine Ketones (Negative) mg/dL Urine Blood (Negative) Urine Nitrite (Negative) Ur Leukocyte Esterase (Negative) Urine RBC (0-2) /HPF Urine WBC (0-5) /HPF Ur Squamous Epith Cells (0-2) /HPF Urine Bacteria (None Seen) Hyaline Casts (0-2) /LPF COVID-19 (LAUREN) (Negative) COVID-19 Clin Com 06/29/25 06/29/25 06/29/25 Range/Units 14:37 16:15 20:49 WBC (4.8-10.8) X10*3/uL RBC (4.20-5.50) X10*6/uL Hgb (12.0-16.0) g/dl Hct (37.0-47.0) % MCV (80.0-98.0) fL MCH (27.0-33.0) pg MCHC (31.0-35.0) g/dl RDW (11.0-16.0) % Plt Count (160-400) X10*3/uL MPV (9.4-12.3) fL Immature Gran % (Auto) (0.0-0.4) % Neut % (Auto) (45-73) % Lymph % (Auto) (20-40) % [place] % (Auto) (2-11) % Eos % (Auto) (0-4) % Baso % (Auto) (0-2) % Lymph # (Auto) (1.2-4.9) X10*3/uL [place] # (Auto) (0.1-1.2) X10*3/uL Eos # (Auto) (0.0-0.4) X10*3/uL Baso # (Auto) (0.0-0.2) X10*3/uL Abs Immat Gran (auto) (0.00-0.03) X10*3/uL Absolute Neuts (auto) (2.0-8.3) x10*3/uL Absolute Nucleated RBC (0.0-0.012) X10*3/uL Nucleated RBC % (auto) (0.0-0.2) /100WBC Sodium (135-145) mmol/L Potassium (3.3-5.1) mmol/L Chloride (96-108) mmol/L Carbon Dioxide (22-29) mmol/L Anion Gap (12-20) BUN (9-16) mg/dL Creatinine (0.5-1.4) mg/dL Estim Creat Clear Calc Estimated GFR POC Glucose 390 H* 277 H 254 H (60-115) mg/dL Random Glucose (60-115) mg/dL Calcium (8.4-10.2) mg/dL Urine Color Urine Appearance Urine pH (5.0-9.0) Ur Specific [place] (1.005-1.025) Urine Protein (Neg-Trace) mg/dL Urine Glucose (UA) (Negative) mg/dL Urine Ketones (Negative) mg/dL Urine Blood (Negative) Urine Nitrite (Negative) Ur Leukocyte Esterase (Negative) Urine RBC (0-2) /HPF Urine WBC (0-5) /HPF Ur Squamous Epith Cells (0-2) /HPF Urine Bacteria (None Seen) Hyaline Casts (0-2) /LPF COVID-19 (LAUREN) (Negative) COVID-19 Clin Com 06/30/25 06/30/25 06/30/25 Range/Units 07:34 11:30 17:24 WBC (4.8-10.8) X10*3/uL RBC (4.20-5.50) X10*6/uL Hgb (12.0-16.0) g/dl Hct (37.0-47.0) % MCV (80.0-98.0) fL MCH (27.0-33.0) pg MCHC (31.0-35.0) g/dl RDW (11.0-16.0) % Plt Count (160-400) X10*3/uL MPV (9.4-12.3) fL Immature Gran % (Auto) (0.0-0.4) % Neut % (Auto) (45-73) % Lymph % (Auto) (20-40) % [place] % (Auto) (2-11) % Eos % (Auto) (0-4) % Baso % (Auto) (0-2) % Lymph # (Auto) (1.2-4.9) X10*3/uL [place] # (Auto) (0.1-1.2) X10*3/uL Eos # (Auto) (0.0-0.4) X10*3/uL Baso # (Auto) (0.0-0.2) X10*3/uL Abs Immat Gran (auto) (0.00-0.03) X10*3/uL Absolute Neuts (auto) (2.0-8.3) x10*3/uL Absolute Nucleated RBC (0.0-0.012) X10*3/uL Nucleated RBC % (auto) (0.0-0.2) /100WBC Sodium (135-145) mmol/L Potassium (3.3-5.1) mmol/L Chloride (96-108) mmol/L Carbon Dioxide (22-29) mmol/L Anion Gap (12-20) BUN (9-16) mg/dL Creatinine (0.5-1.4) mg/dL Estim Creat Clear Calc Estimated GFR POC Glucose 210 H 355 H* 282 H (60-115) mg/dL Random Glucose (60-115) mg/dL Calcium (8.4-10.2) mg/dL Urine Color Urine Appearance Urine pH (5.0-9.0) Ur Specific [place] (1.005-1.025) Urine Protein (Neg-Trace) mg/dL Urine Glucose (UA) (Negative) mg/dL Urine Ketones (Negative) mg/dL Urine Blood (Negative) Urine Nitrite (Negative) Ur Leukocyte Esterase (Negative) Urine RBC (0-2) /HPF Urine WBC (0-5) /HPF Ur Squamous Epith Cells (0-2) /HPF Urine Bacteria (None Seen) Hyaline Casts (0-2) /LPF COVID-19 (LAUREN) (Negative) COVID-19 Clin Com 06/30/25 07/01/25 Range/Units 21:28 07:40 WBC (4.8-10.8) X10*3/uL RBC (4.20-5.50) X10*6/uL Hgb (12.0-16.0) g/dl Hct (37.0-47.0) % MCV (80.0-98.0) fL MCH (27.0-33.0) pg MCHC (31.0-35.0) g/dl RDW (11.0-16.0) % Plt Count (160-400) X10*3/uL MPV (9.4-12.3) fL Immature Gran % (Auto) (0.0-0.4) % Neut % (Auto) (45-73) % Lymph % (Auto) (20-40) % [place] % (Auto) (2-11) % Eos % (Auto) (0-4) % Baso % (Auto) (0-2) % Lymph # (Auto) (1.2-4.9) X10*3/uL [place] # (Auto) (0.1-1.2) X10*3/uL Eos # (Auto) (0.0-0.4) X10*3/uL Baso # (Auto) (0.0-0.2) X10*3/uL Abs Immat Gran (auto) (0.00-0.03) X10*3/uL Absolute Neuts (auto) (2.0-8.3) x10*3/uL Absolute Nucleated RBC (0.0-0.012) X10*3/uL Nucleated RBC % (auto) (0.0-0.2) /100WBC Sodium (135-145) mmol/L Potassium (3.3-5.1) mmol/L Chloride (96-108) mmol/L Carbon Dioxide (22-29) mmol/L Anion Gap (12-20) BUN (9-16) mg/dL Creatinine (0.5-1.4) mg/dL Estim Creat Clear Calc Estimated GFR POC Glucose 230 H 225 H (60-115) mg/dL Random Glucose (60-115) mg/dL Calcium (8.4-10.2) mg/dL Urine Color Urine Appearance Urine pH (5.0-9.0) Ur Specific [place] (1.005-1.025) Urine Protein (Neg-Trace) mg/dL Urine Glucose (UA) (Negative) mg/dL Urine Ketones (Negative) mg/dL Urine Blood (Negative) Urine Nitrite (Negative) Ur Leukocyte Esterase (Negative) Urine RBC (0-2) /HPF Urine WBC (0-5) /HPF Ur Squamous Epith Cells (0-2) /HPF Urine Bacteria (None Seen) Hyaline Casts (0-2) /LPF COVID-19 ([facility]) (Negative) COVID-19 Clin Com Critical Care Time Critical Care Time Critical Care Time: Yes Total Critical Care Time: 40 Attestation: I have personally provided critical care time. Time includes review of lab data, radiology results, discussion with consultants, and monitoring for potential decompensation. Intervention performed as documented. Discharge Plan Discharge Clinical Impression: Multiple falls, COVID-19, Eyebrow laceration Dementia Qualifiers: Dementia type: unspecified type Dementia severity: unspecified severity D ementia behavioral or psychological symptom: unspecified whether behavioral, psychotic, or mood disturbance or anxiety Qualified Code(s): F03.90 - Unspecified dementia, unspecified severity, without behavioral disturbance, psychotic disturbance, mood disturbance, and anxiety Patient Disposition: Xfer Inpatient Rehab Fac Transfer Details: TO: [facility] Additional Instructions: Your stitches need to be removed in 7-10 days Take your medications as prescribed. If you were prescribed antibiotics today, it is important that you take your medication to their entirety, do not skip any doses, do not finish them early. Follow-up with your primary care provider this week. Return to the emergency department with new or worsening symptoms. Such as fevers, chills, chest pain, shortness of breath, nausea, vomiting, dizziness, headache, vision changes, lethargy In case of emergency call 911 Prescriptions: No Action trazodone 50 mg tablet 50 mg PO BEDTIME glipizide 10 mg tablet 10 mg PO DAILY metformin 1,000 mg tablet 1,000 mg PO BID losartan 25 mg tablet 25 mg PO DAILY aspirin 81 mg Tablet 81 mg PO DAILY sertraline 50 mg tablet 50 mg PO DAILY rosuvastatin 10 mg tablet 10 mg PO DAILY insulin glargine [Basaglar KwikPen U-100 Insulin] 100 unit/mL (3 mL) insulin pen 10 unit subcut DAILY Referrals: [facility] [Outside] Dejah Irizarry NP [Primary Care Provider, Internal Medicine] Interventions: ED Discharge Assessment Last Done: 07/01/25 08:49 Discharge Date/Time: 07/01/25 11:48 Print Language: Polish
[2025-06-25] MEDS: Lidocaine HCl 1 % 20 ML VIAL 10 ML INFILTRATI (22:10)
[2025-06-25 22:31] LABS: Appearance Urine Clear; Glucose Urine UA >=1000 mg/dL (Negative); PH 6.5 (5.0-9.0); Specific Gravity - Urine 1.020 (1.005-1.025); UMIC TRIGGER UA YES
[2025-06-25 22:41] LABS: COVID-19 Test Positive (Negative); IDNOW Serial# 55D5AD1C
[2025-06-25 23:22] VITALS: BP 129/53; PULSE 73; RESP 18; TEMP 37.1; O2SAT 97
[2025-06-26] VITALS: RESP 18
--- NOTE | 2025-06-26 01:19 | PC.NURSE ---
Pt relocated from ED bed 26 to 16, arriving via stretcher, the pt is noted to be excessively restless. She currently has an unofficial sitter present at bedside for safety as the pt continues to roll around, kick her legs, and thrashing around in the bed. Pt is no longer redirectable to verbal stimuli rather requires physical redirection. per bedside sitter, pt currently worse now than she was before the previous PO Zyprexa was given. MD aware and new orders requested.
--- NOTE | 2025-06-26 01:48 | PC.NURSE ---
pt remains restless, incontinent of urine despite bedpan attempts. Pt received jose daniel care and a full bed change. Seizure pads are present on the siderails and sitter present at bedside for safety
[2025-06-26 02:00] VITALS: RESP 20
--- NOTE | 2025-06-26 06:03 | PC.NURSE ---
Pt remains restless in the stretcher with sitter present at bedside for safety. The patient has been offered food, beverage, toileting alternatives, etc without much avail.
[2025-06-26 12:00] VITALS: BP 118/69; PULSE 99; TEMP 36.8; O2SAT 93
--- NOTE | 2025-06-26 13:12 | MHC.CM.ED ---
Received case management consult overnight. Patient came to the ER due to falls. Patient found to be +Covid. Patient's is +Covid. Physical therapy eval completed. microwave technician care is recommended. Spoke with patient's daughter, Rosie, via telephone at [phone]. Rosie verifies patient lives with her . T/W explained physical therapy findings. Also explained patient did not have a qualifying stay. Private pay electric meter tester helper care, Medicaid for LTC and home with family support discussed. Rosie has family that runs [employer] [facility]. Rosie is aware patient will not qualify for [employer]. Rosie will speak to family and get back to about discharge plan. Continue to monitor for d/c needs.
--- NOTE | 2025-06-26 14:15 | MHC.CM.ED ---
Met with patient's daughter, Rosie, at bedside to discuss d/c planning. Patient lives with her , Ren. Ren is Rosie's step father. Rosie and her sister are POA's and HCP for patient. They also provide care for patient. Rosie is asking her step-father to come to the ER to be involved in d/c planning. CM will meet with family when all on are on-site. Continue to monitor for d/c needs.
--- NOTE | 2025-06-26 14:59 | PC.NURSE ---
Daughter Rosie approaches this RN and states that she and the family have changed their minds and now wish to pursue LTC placement for Pt. Rosie states she will be making some calls to facilities and will contact Case Management today or tomorrow. corporate planner Deja made aware.
--- NOTE | 2025-06-26 15:28 | MHC.CM.ED ---
Addendum entered by Deja Schroeder 06/26/25 16:14: Received telephone from daughter, Rosie, requesting neuro consult. Rosie is concerned about patient's current level of alertness. Rosie states patient is typically able to get up, ambulate to the bathroom. Rosie is concerned that patient is so disoriented and lethargic. T/W explained patient received PRN medication overnight due to some agitation. Neuro consult is unlikely to be ordered d/t history of dementia. Explained psych consult for med recommendations would be more likely to be ordered in the ER. Rosie verbalized understanding. This information was relayed to Park HAMMONDS. Psych consult for med recommendations related to behaviors with dementia ordered. Original Note: Received telephone call from daughterRosie. Family has decided to privately pay for LTC. Choices: 1) [facility] 2) [facility] 3) [facility]. Rosie aware if no beds available referral will be broadcasted. Rosie does not want a referral to [facility]. Rosie will email T/W a copy of patient's HCP. Continue to monitor for d/c needs.
--- NOTE | 2025-06-26 16:20 | MHC.CM.ED ---
[facility] do not have LTC beds available. Referral broadcasted within 15 miles of patient's home at this time. No referral made to [facility] at daughter's request. Continue to monitor for d/c needs.
[2025-06-26 16:28] LABS: Glucose, Whole Blood 195 mg/dL (60-115)
--- NOTE | 2025-06-26 18:23 | PHA.MEDREC ---
Pharmacy Consult ? Medication Reconciliation Pharmacy has completed the medication reconciliation. Spoke with pt family at bedside and they confirmed pt medications. Family confirmed the Basaglar, stating pt takes 10 units daily.
[2025-06-26 19:09] VITALS: BP 103/66; PULSE 89; RESP 16; TEMP 37.1; O2SAT 96
--- NOTE | 2025-06-26 19:17 | MHC.CM.ED ---
No bed offers at this time for private pay LTC. Pt is Covid positive. Still waiting to hear from: RITA Nichole, [facility], Avinash Farris and [facility]
[2025-06-26 21:49] VITALS: BP 153/78; PULSE 84; RESP 20; TEMP 36.7; O2SAT 94
--- NOTE | 2025-06-27 00:31 | PC.NURSE ---
pt medicated per mar, pt repositioned, 1:1
--- NOTE | 2025-06-27 03:54 | PC.NURSE ---
complete bed change, replaced pure wick . pt repositioned for comfort. remains on a 1:1 safety
[2025-06-27 05:53] VITALS: BP 142/56; PULSE 80; RESP 22; TEMP 36.7; O2SAT 94
--- NOTE | 2025-06-27 07:10 | PC.NURSE ---
Resumed care of pt at 0700, pt is currently sleeping, per RN letting pt sleep at this time and not waking up for breakfast, staff remains at bedside at this time for safety measures. Awaiting placement at this time at LTC.
--- NOTE | 2025-06-27 08:31 | PC.NURSE ---
CASSIUS Lo notified of completed medication rec. and no code status being ordered at this time, CM also aware.
--- NOTE | 2025-06-27 10:55 | PC.NURSE ---
Patient is a 74 yo female who came to the emergency room via ambulance. PMH: dementia. Today, patient had a fall and is complaining of a laceration to the left side of the eyebrow. According to the family, patient lives with her who is otherwise healthy. However today he has COVID and is not here. The family reports that the patient has been falling almost every day for about a month, has sustained well over 20 falls in 1 month. Patient alert, very restless, intermittently following some simple commands. Noted to be swinging her legs in a non-specific manner. Respirations even and non-labored. Abdomen soft, non-tender with positive bowel sounds. coccyx and bilat buttocks sl reddened with no open areas noted. purwick intact. Positive pedal pulses with no edema noted. Daughter at the bedside.
--- NOTE | 2025-06-27 11:07 | MHC.CM.ED ---
Addendum entered by Deja Schroeder 06/27/25 12:53: Received telephone call from Rosie. [facility] made aware and asked to reach out to family about financials. Original Note: Patient remains in ER overflow. Psych consult for med recommendations is still pending. Spoke with Rosie via telephone. [facility]onia [facility] is now 1st choice. [facility] aware. Does not have a Covid bed at this time. [facility] feels patient will need a bed on their dementia unit. Will not be able to accept before 07/07 due to Covid. [facility] will follow to see if they can offer a bed.
[2025-06-27 14:00] VITALS: BP 139/69; PULSE 68; RESP 14; TEMP 37.3; O2SAT 96
--- NOTE | 2025-06-27 20:26 | PC.NURSE ---
Pt Moved to overflow 1 d/t airborne precautions. Family and 1:1 sitter at bedside.
[2025-06-27 20:38] VITALS: BP 128/67; PULSE 93; RESP 18; TEMP 36.9; O2SAT 97
--- NOTE | 2025-06-27 21:01 | PM.PSYCN ---
History of Present Illness Date of Service: 06/27/25 Chief Complaint: FALL, EYEBROW LAC Reason for Consult: Medication management Requesting physician: Park Gonzalez Discussed with referring provider: No (Discuss with employment evaluator/case manager Sayda and Veena HAMMONDS ) Sources of Information: chart reviewed and crisis/core team assessment reviewed Additional Sources of Information: Not able to discuss patient d/t mental status HPI Narrative: Per ED provider note: Patient comes to the emergency room via ambulance on 06/25 as patient had a fall and is complaining of a laceration to the left side of the eyebrow. According to the family, patient lives with her who is otherwise healthy. The family reports that the patient has been falling almost every day for about a month, has sustained well over 20 falls in 1 month. Patient has hx dementia and is a poor historian. Past Psychiatric History: Not able to obtain Medical Evaluation Reviewed: Yes Personal & Social History: Not able to discuss Review of Systems Review of Systems Yes Unobtainable due to mental status [facility] Medical History (Updated 06/27/25 @ 21:09 by Alysha Mitchell NP) Dementia Family History: Not able to obtain Social History: Not able to obtain Substance History: Not able to obtain Trauma History: Not able to obtain Diagnostics Vital Signs (24Hr): Vital Signs - 24 hr 06/26/25 21:49 06/27/25 05:53 06/27/25 14:00 Temperature 98.0 F 98.1 F 99.1 F Pulse Rate 84 80 68 Respiratory Rate 20 22 H 14 Blood Pressure 153/78 H 142/56 H 139/69 Pulse Oximetry 94 94 96 Oxygen Delivery Method Room Air Room Air Room Air 06/27/25 20:38 Temperature 98.5 F Pulse Rate 93 Respiratory Rate 18 Blood Pressure 128/67 Pulse Oximetry 97 Oxygen Delivery Method Room Air BMI result Body Mass Index 24.9 Labs 06/25/25 21:09 06/25/25 21:09 Labs: Laboratory Results - last 48 hr 06/25/25 06/25/25 06/25/25 21:09 22:12 22:23 WBC 9.2 RBC 4.10 L Hgb 12.6 Hct 37.0 MCV 90.2 MCH 30.7 MCHC 34.1 RDW 13.3 Plt Count 242 MPV 9.5 Immature Gran % (Auto) 0.5 H Neut % (Auto) 83.4 H Lymph % (Auto) 6.8 L [place] % (Auto) 8.1 Eos % (Auto) 0.7 Baso % (Auto) 0.5 Lymph # (Auto) 0.6 L [place] # (Auto) 0.8 Eos # (Auto) 0.1 Baso # (Auto) 0.1 Abs Immat Gran (auto) 0.05 H Absolute Neuts (auto) 7.7 Absolute Nucleated RBC 0.000 Nucleated RBC % (auto) 0.0 Sodium 136 Potassium 4.2 Chloride 100 Carbon Dioxide 25 Anion Gap 15 BUN 13 Creatinine 0.63 Estim Creat Clear Calc 73.1 Estimated GFR > 60 POC Glucose Random Glucose 223 H Calcium 9.0 Urine Color Yellow Urine Appearance Clear Urine pH 6.5 Ur Specific [place] 1.020 Urine Protein Trace Urine Glucose (UA) >=1000 H Urine Ketones 15 Urine Blood Negative Urine Nitrite Negative Ur Leukocyte Esterase Negative Urine RBC 0-2 Urine WBC 0-5 Ur Squamous Epith Cells 0-2 Urine Bacteria None Seen Hyaline Casts 0-2 COVID-19 (LAUREN) Positive A COVID-19 Clin Com See Note 06/26/25 16:23 WBC RBC Hgb Hct MCV MCH MCHC RDW Plt Count MPV Immature Gran % (Auto) Neut % (Auto) Lymph % (Auto) [place] % (Auto) Eos % (Auto) Baso % (Auto) Lymph # (Auto) [place] # (Auto) Eos # (Auto) Baso # (Auto) Abs Immat Gran (auto) Absolute Neuts (auto) Absolute Nucleated RBC Nucleated RBC % (auto) Sodium Potassium Chloride Carbon Dioxide Anion Gap BUN Creatinine Estim Creat Clear Calc Estimated GFR POC Glucose 195 H Random Glucose Calcium Urine Color Urine Appearance Urine pH Ur Specific [place] Urine Protein Urine Glucose (UA) Urine Ketones Urine Blood Urine Nitrite Ur Leukocyte Esterase Urine RBC Urine WBC Ur Squamous Epith Cells Urine Bacteria Hyaline Casts COVID-19 (LAUREN) COVID-19 Clin Com Mental Status Exam Mental Status Exam Narrative: Not able to obtain d/t current mental status. Patient is in overflow bed 1. Case discussed with employment evaluator/case manager and PA on duty for Overflow Medications Medications Current Medications Acetaminophen (Acetaminophen 325 Mg Tablet) 650 mg PO Q6H PRN PRN Reason: Pain/fever Lorazepam (Lorazepam 0.5 Mg Tablet) 0.5 mg PO Q6H PRN PRN Reason: severe anxiety Melatonin (Melatonin 3 Mg Tablet) 6 mg PO BEDTIME DELMY Olanzapine (Olanzapine 2.5 Mg Tablet) 2.5 mg PO BID DELMY Olanzapine (Olanzapine 5 Mg Tablet) 5 mg PO BID PRN PRN Reason: agitation Trazodone HCl (Trazodone Hcl 50 Mg Tablet) 50 mg PO BEDTIME PRN PRN Reason: Insomnia Allergies Allergies Allergy/AdvReac Type Severity Reaction Status Date / Time Unable to Assess Allergy Verified 06/25/25 20:08 Assessment & Plan Assessment & Plan (1) Medication management: Status: Acute Code(s): Z79.899 - Other keno terminal operator (current) drug therapy Plan HPI: Patient comes to the emergency room via ambulance on 06/25 as patient had a fall and is complaining of a laceration to the left side of the eyebrow. According to the family, patient lives with her who is otherwise healthy. The family reports that the patient has been falling almost every day for about a month, has sustained well over 20 falls in 1 month. Patient has hx dementia and is a poor historian. Not able to assess patient even though this provider attempted to see her twice in different days (06/26 and 06/27) as patient was sedated and was sleeping after given IM medication of Ativan and Zyprexa. Per chart review, Head/face/ and spine CT scans were negative. Patient also Dx with Covild 19 + on 06/26. Her hx, her has Covid at home. Case discussed with evening employment evaluator/case manager x2. Per employment evaluator/case manager patient was accepted at a rehab with private pay on 06/30. Patient moved to overflow bed 1 from regular ED 16 . Med rec- home meds was not started or ordered prior to discussing with employment evaluator/case manager. hospice clinical manager and this provider discussed with on duty PA who was taken care of and started on home meds with diabetic protocol. RN on duty also asked to call family to verify allergies as it not verify since he she admitted to ED. this RN we will notify this provider she is allergic to anyone of medication order today. Patient appears to respond well with Zyprexa, therefore, I would think she may benefit from low dose scheduled for agitation. Following are meds that I would think she would benefit and prevent IM, or high dose of Ativan Tylenol 650 mg q.4 hours as needed for pain or fever. Nursing staff to monitor any other symptoms from COVID. Provide comfort care if necessary. Ativan 0.5 mg Q 8 hours as needed for severe anxiety. Zyprexa 2.5 mg p.o. b.i.d. for agitation/mood Zyprexa 5 mg b.i.d. p.r.n. for severe agitation. Melatonin 6 mg at bedtime for insomnia. And on duty aware to hold it if patient is sedated Trazodone 50mg as needed for severe insomnia. Monitor blood sugar per diabetic protocol. Per employment evaluator/case manager note this morning: Family has decided to take [facility] bed on 06/30. [facility] made aware and asked to reach out to family about financials. We will follow-up with patient in a day or two to assess on on the effectiveness of medication, especially for Zyprexa or need any medication adjustment. Total time managing care of this patient today ____ minutes. Patient educated on: other (Not able to provide education regarding medications d/t current mental status) Informed Consent: further education needed
--- NOTE | 2025-06-27 21:20 | PC.NURSE ---
TW spoke with psych provider Raymundo Mitchell NP, who states she placed new orders for pt to help address agitation while attempting to not over sedate pt. request for nursing to contact psych team if sedation is a concern at any point.
--- NOTE | 2025-06-27 21:26 | PC.NURSE ---
TW placed call to HCP/ to verify allergies. He reports he is unaware and to touch base with daughter, Rosie. Rosie unsure of allergies, reports she definitely has an allergy but isnt sure if it is penicillin or any other medications. Also provided her with an update on plan and recent med changes. She expressed concern over PTs lethargy. Informed her that new psych meds and dosing plan were to prevent over sedation. Rosie states this is the first time anyone explained information in detail to her, tw explained that psych just made these changes.
[2025-06-27 21:27] LABS: Glucose, Whole Blood 354 mg/dL (60-115)
--- NOTE | 2025-06-27 21:45 | PC.NURSE ---
PT medicated as per with water. pt tolerated well.
--- NOTE | 2025-06-27 22:13 | PC.NURSE ---
pOC 356, CASSIUS Mayen made aware and noted that it is likely d/t her not getting her meds since presenting to the ED. plan to give metformin as ordered with no additional medications.
--- NOTE | 2025-06-28 02:12 | MHC.EDTECH ---
Patient notified of need for bowel movement. Upon arrival with bedpan, pt had already had large BM. Performed pericare, placed clean pads, and replaced PureWick. Pt left clean, dry and comfortable.
--- NOTE | 2025-06-28 06:02 | PC.NURSE ---
Periodic restlessness observed throughout night likely d/t noted daytime sleeping/lethargy. However, pt did not display any agitation throughout shift and remained safe and in no distress. Safety precautions in place, 1:1 remains at bedside. Plan of care ongoing
[2025-06-28 06:46] VITALS: BP 152/72; PULSE 93; RESP 16; TEMP 37; O2SAT 98
--- NOTE | 2025-06-28 07:27 | PC.NURSE ---
Patient is a 74 yo female who came to the emergency room via ambulance. PMH: dementia. Patient had a fall and was noted to have a laceration to the left side of the eyebrow. According to the family, patient lives with her who is otherwise healthy. However today he has COVID and is not here. The family reports that the patient has been falling almost every day for about a month, has sustained well over 20 falls in 1 month. Patient resting comfortably at this time. Respirations even and non-labored. Abdomen soft, non-tender with positive bowel sounds. coccyx and bilat buttocks sl reddened with no open areas noted. purwick patent and intact, draining lester urine. Positive pedal pulses with no edema noted. Patient evaluated by psychiatry and some medication changes made. Family is requesting [facility] at this time.
[2025-06-28 07:36] LABS: Glucose, Whole Blood 283 mg/dL (60-115)
[2025-06-28] MEDS: Insulin Glargine,Hum.rec.anlog 100 UNIT/ML 10 ML VIAL 10 UNIT SUBCUT (08:16)
--- NOTE | 2025-06-28 10:41 | MHC.CM.ED ---
Addendum entered by Deja Schroeder 06/28/25 13:38: [facility] booked for Saturday 06/30 at 10am. Transportation can be rescheduled if needed. Med nec with chart. Original Note: Patient remains in ER overflow. Received telephone call from patient's daughter, Rosie. Rosie states patient is allergic to Keflex. Allergy added to chart. Rosie is requesting repeat PT eval because patient is no longer lethargic and appears to be at her true baseline. Rosie aware STR will still need to be privately paid. Rosie verbalized understanding. Karthik HAMMONDS aware. Repeat PT eval ordered. An[facility]ate [facility]. Continue to monitor for d/c needs.
[2025-06-28 12:09] LABS: Glucose, Whole Blood 334 mg/dL (60-115)
--- NOTE | 2025-06-28 13:16 | MHC.EDTECH ---
Pt OOB to recliner. 2 assist transfer. Purewick in place.
--- NOTE | 2025-06-28 13:43 | PC.NURSE ---
Daughter is at the bedside and reqesting a PT and psych re-eval.
--- NOTE | 2025-06-28 14:19 | MHC.EDTECH ---
pt requesting to go back to bed. Pt soiled in stool. Purewick changed and resting in bed comfrotably at this time. Family at bedside
[2025-06-28 16:21] LABS: Glucose, Whole Blood 353 mg/dL (60-115)
[2025-06-28 20:00] VITALS: BP 119/61; PULSE 83; RESP 18; TEMP 37.1; O2SAT 96
[2025-06-28 21:19] LABS: Glucose, Whole Blood 383 mg/dL (60-115)
[2025-06-28 21:50] VITALS: RESP 16
--- NOTE | 2025-06-28 23:24 | PC.NURSE ---
Rosie Mullins called twice in last hour asking both times if any changes and if patient was cleaned
[2025-06-28 23:34] VITALS: RESP 18
[2025-06-28 23:38] LABS: Anion Gap 14 (12-20); Blood Urea Nitrogen 16 mg/dL (9-16); Calcium 8.7 mg/dL (8.4-10.2); Carbon Dioxide 24 mmol/L (22-29); Chloride 102 mmol/L (96-108); Creatinine Clr Calc Pharmacy 82.2; Estimated Glomerular Filt Rate > 60; Potassium 4.0 mmol/L (3.3-5.1); Sodium 136 mmol/L (135-145)
--- NOTE | 2025-06-28 23:55 | PC.NURSE ---
contacted ED PA questioning about persistently high sugars in setting of covid. patient has been receiving home antidiabetic meds. BMP repeated. no further orders
[2025-06-29 05:31] VITALS: BP 139/81; PULSE 73; RESP 18; TEMP 36.1; O2SAT 96
[2025-06-29 07:27] LABS: Glucose, Whole Blood 247 mg/dL (60-115)
--- NOTE | 2025-06-29 07:33 | PC.NURSE ---
Patient is a 74 yo female who came to the emergency room via ambulance. PMH: dementia. Patient had a fall and was noted to have a laceration to the left side of the eyebrow. According to the family, patient lives with her who is otherwise healthy. However today he has COVID and is not here. The family reports that the patient has been falling almost every day for about a month, has sustained well over 20 falls in 1 month. Patient resting comfortably at this time. Patient has been more alert, able to make her needs known, and cooperative with care. Respirations even and non-labored. Abdomen soft, non-tender with positive bowel sounds. coccyx and bilat buttocks sl reddened with no open areas noted. purwick patent and intact, draining lester urine. Positive pedal pulses with no edema noted. PT eval repeated yesterday and although patient did better the recommendation is still STR. Pending repeat psych eval. Plan to transition to [facility] on the .
[2025-06-29] MEDS: Insulin Glargine,Hum.rec.anlog 100 UNIT/ML 10 ML VIAL 10 UNIT SUBCUT (08:18)
--- NOTE | 2025-06-29 11:15 | MHC.CM.PN ---
ANNETTE SPOKE TO PTS DAUGHTER, MIGUEL, SHE IS AWARE PT WILL DC TO [facility] VIA BLS TOMORROW SHE SAYS SHE IS WORRIED THAT THEY HAVE NOT CONTACTED HER REGARDING PAYMENT, AND THEY WILL BE UNABLE TO DO IT OVER THE WEEKEND MESSAGE SENT TO [facility] LIAISON ASKING THAT THEY MANAGE THE FINANCIAL ASPECT TODAY TO ENSURE SHE WILL BE ACCEPTED TOMORROW
[2025-06-29 14:00] VITALS: BP 103/55; PULSE 86; RESP 18; TEMP 37.3; O2SAT 97
[2025-06-29 14:36] LABS: Creatinine Clr Calc Pharmacy 71.9; Estimated Glomerular Filt Rate > 60
[2025-06-29 14:42] LABS: Glucose, Whole Blood 390 mg/dL (60-115)
[2025-06-29 16:20] LABS: Glucose, Whole Blood 277 mg/dL (60-115)
[2025-06-29 20:58] LABS: Glucose, Whole Blood 254 mg/dL (60-115)
[2025-06-29 21:13] VITALS: BP 127/62; PULSE 91; RESP 16; TEMP 36.4; O2SAT 95
[2025-06-30 06:00] VITALS: BP 114/63; PULSE 73; RESP 14; TEMP 36; O2SAT 95
[2025-06-30 07:39] LABS: Glucose, Whole Blood 210 mg/dL (60-115)
[2025-06-30] MEDS: Insulin Glargine,Hum.rec.anlog 100 UNIT/ML 10 ML VIAL 10 UNIT SUBCUT (08:31)
[2025-06-30 08:32] VITALS: BP 118/60
--- NOTE | 2025-06-30 10:46 | MHC.CM.ED ---
Patient remains in ER overflow. Was scheduled to d/c to [facility] today. Received notification from [facility] patient will not be able to accept until tomorrow d/t being positive for Covid on 06/25. Can transfer to their facility tomorrow at 11am. [facility] UGARTE aware. Updated med nec in chart. Patient, daughter Ann Velez RN and Adamaris HAMMONDS aware. Continue to monitor for d/c needs.
[2025-06-30 11:34] LABS: Glucose, Whole Blood 355 mg/dL (60-115)
[2025-06-30 11:55] VITALS: BP 113/71; PULSE 82; RESP 14
[2025-06-30 14:00] VITALS: BP 104/54; PULSE 83; RESP 14; TEMP 36.8; O2SAT 98
[2025-06-30 17:28] LABS: Glucose, Whole Blood 282 mg/dL (60-115)
[2025-06-30 19:26] VITALS: BP 112/60; PULSE 88; RESP 16; TEMP 37; O2SAT 97
[2025-06-30 21:32] LABS: Glucose, Whole Blood 230 mg/dL (60-115)
[2025-06-30 22:00] VITALS: BP 135/60; PULSE 92; RESP 16; TEMP 36.4; O2SAT 97
[2025-07-01 05:25] VITALS: BP 118/60; PULSE 83; RESP 16; TEMP 36.6; O2SAT 95
[2025-07-01 07:48] LABS: Glucose, Whole Blood 225 mg/dL (60-115)
--- NOTE | 2025-07-01 08:30 | PC.NURSE ---
attempted to contact facility to give report. no answer/response and unable to leave voicemail
[2025-07-01 08:49] VITALS: BP 118/60; PULSE 83; RESP 16; TEMP 36.6; O2SAT 95
[2025-07-01] MEDS: Insulin Glargine,Hum.rec.anlog 100 UNIT/ML 10 ML VIAL 10 UNIT SUBCUT (09:52)
[2025-07-01 11:26] VITALS: BP 110/67; PULSE 91; RESP 18; TEMP 36.8; O2SAT 96
== END 2025-07-01 11:48 ==
PROVIDERS: Physician Assistant Medical; Emergency Provider Emergency Medicine; PCP Nurse Practitioner Gerontology
DX: S01.112A Laceration without foreign body of left eyelid and periocular area, initial encounter (principal); F03.90 Unspecified dementia, unspecified severity, without behavioral disturbance, psychotic disturbance, mood disturbance, and anxiety; Z91.81 History of falling; U07.1 COVID-19; Z79.899 Other long term (current) drug therapy; W18.30XA Fall on same level, unspecified, initial encounter; Y93.9 Activity, unspecified; Y92.9 Unspecified place or not applicable; Y99.9 Unspecified external cause status
CPT/HCPCS: 36415; 70450; 70486; 72125; 80048; 81001; 82565; 82947; 85025; 87635; 93005; 96360; 96361; 97162; 99285; J2003

== ENCOUNTER → 2025-06-25 20:11 | Outpatient (BNV) | payer MEDICARE, OTHER, SELFPAY | PROVIDERS: Emergency Provider Emergency Medicine; PCP Nurse Practitioner Gerontology; Visit Provider Nurse Practitioner Psychiatric/Mental Health | DX: F03.90 Unspecified dementia, unspecified severity, without behavioral disturbance, psychotic disturbance, mood disturbance, and anxiety (principal); Z79.899 Other long term (current) drug therapy | CPT/HCPCS: 99283 ==

== ENCOUNTER → 2025-06-25 21:16 | Outpatient (BNV) | payer MEDICARE, OTHER, SELFPAY | PROVIDERS: Emergency Provider Emergency Medicine; PCP Nurse Practitioner Gerontology; Visit Provider Internal Medicine Cardiovascular Disease | DX: Z13.6 Encounter for screening for cardiovascular disorders (principal); W19.XXXA Unspecified fall, initial encounter | CPT/HCPCS: 93010 ==

== ENCOUNTER → 2025-06-25 21:50 | Outpatient (BNV) | payer MEDICARE, OTHER, SELFPAY | PROVIDERS: Emergency Provider Emergency Medicine; PCP Nurse Practitioner Gerontology; Visit Provider Radiology Diagnostic Radiology | DX: M47.812 Spondylosis without myelopathy or radiculopathy, cervical region (principal); S00.12XA Contusion of left eyelid and periocular area, initial encounter; R51.9 Headache, unspecified | CPT/HCPCS: 70450; 70486; 72125 ==